=== PATIENT | male | born 1950 | race African-American/Black ===

== ENCOUNTER 2017-09-08 15:57 | Emergency (ER) | payer OTHER ==
[~2017-09-08] VITALS: Ht 170.2 cm; Wt 62.6 kg
[2017-09-08] MEDS ORDERED: LISINOPRIL10 MG (16:17)
[2017-09-08] MEDS ORDERED: LASIX20 MG (16:17)
[2017-09-08] MEDS ORDERED: ALDACTONE50 MG (16:17)
[2017-09-08] MEDS ORDERED: NAPR500T14 (16:17)
[2017-09-09] MEDS ORDERED: APETIGEN P12.5 MG/15 PO (03:18)
== END 2017-09-09 03:26 | disposition home or self-care (01) ==
LOC: ER 15:57
DX: R18.8 Other ascites (principal); B18.2 Chronic viral hepatitis C